=== PATIENT | male | born 1945 | race Caucasian/White ===

== ENCOUNTER 2016-11-19 19:18 | Emergency (ER) | payer MEDICARE, BC ==
[~2016-11-19] VITALS: Ht 182.9 cm; Wt 93.5 kg
[2016-11-19 19:29] VITALS: BP 100/65; PULSE 77; RESP 18; TEMP 97.5; O2SAT 99
[2016-11-19] MEDS ORDERED: HTN MED (19:43)
[2016-11-19] MEDS ORDERED: [UNRECOGNIZED DRUG - OTHER] (19:43)
[2016-11-19] MEDS ORDERED: VENL25TA PO (19:43)
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
== END 2016-11-19 21:40 | disposition home or self-care (01) ==
LOC: PHEFT 19:18
DX: S80.01XA Contusion of right knee, initial encounter (principal); S80.211A Abrasion, right knee, initial encounter; S50.811A Abrasion of right forearm, initial encounter; F32.9 Major depressive disorder, single episode, unspecified; I10 Essential (primary) hypertension; Z79.899 Other long term (current) drug therapy; V18.4XXA Pedal cycle driver injured in noncollision transport accident in traffic accident, initial encounter
CPT/HCPCS: 73700